=== PATIENT | male | born 1980 | race Two or more races ===

== ENCOUNTER 2018-04-29 17:13 | Emergency (ER) | payer OTHER, SELFPAY ==
[~2018-04-29] VITALS: Ht 160 cm; Wt 86.0 kg
[2018-04-29] MEDS ORDERED: FAMOTIDINE 20MG/2ML VIAL IV STA (18:28)
[2018-04-29] MEDS ORDERED: ONDANSETRON HCL 4MG/2ML INJ IV STA (18:28)
[2018-04-29] MEDS ORDERED: SODIUM CHLORIDE 0.9% 1,000 ML IV ONE (18:28)
[2018-04-29] MEDS ORDERED: MAGNESIUM/ALUMINUM HYDROXIDE/SIMETHICONE 30ML UDC PO STA (18:28)
[2018-04-29 19:06] LABS: BASOPHILS % 0.6 % (0.0-2.0); EOSINOPHILS % 2.1 % (0.0-5.0); HEMATOCRIT. 45.7 % (42.0-52.0); HEMOGLOBIN. 15.7 g/dL (14.0-18.0); LYMPHOCYTES % 44.7 % (20.0-50.0); MEAN CORPUSCULAR VOLUME 93.5 fL (80.0-94.0); NEUTROPHILS % 46.6 % (40.0-76.0); PLATELET 282 x1000/uL (130-400); RED BLOOD CELL COUNT 4.89 mill/uL (4.7-6.1); RED CELL DISTRIBUTION WIDTH 13.4 % (11.6-14.6)
[2018-04-29 19:09] LABS: CHLORIDE 107 mEq/L (98-107)
[2018-04-29 19:13] LABS: ETHANOL BLOOD 208 mg/dL
[2018-04-29 19:14] LABS: PROTHROMBIN TIME 9.9 sec (9.1-11.1)
[2018-04-29 21:05] LABS: CLARITY URINE CLEAR (CLEAR); COLOR URINE YELLOW (YELLOW); KETONES URINE NEGATIVE (NEGATIVE); LEUKOCYTE ESTERASE URINE NEGATIVE (NEGATIVE); NITRITE URINE NEGATIVE (NEGATIVE); OCCULT BLOOD URINE NEGATIVE (NEGATIVE); PROTEIN URINE NEGATIVE (NEGATIVE); SPECIFIC GRAVITY URINE 1.013 (1.005-1.030); UROBILINOGEN URINE 0.2 E.U./dL (0.2-1.0)
[2018-04-29 21:21] LABS: *AMPHETAMINES SCREEN URINE NEGATIVE (NEGATIVE); *BARBITURATES SCREEN URINE NEGATIVE (NEGATIVE); *BENZODIAZEPINES SCREEN URINE NEGATIVE (NEGATIVE); *COCAINE SCREEN URINE NEGATIVE (NEGATIVE)
[2018-04-29 21:22] LABS: CANNABINOID URINE SCREEN NEGATIVE (NEGATIVE); METHADONE URINE SCREEN NEGATIVE (NEGATIVE); OPIATES URINE SCREEN NEGATIVE (NEGATIVE); PHENCYCLIDINE URINE SCREEN NEGATIVE (NEGATIVE)
[2018-04-30 00:25] VITALS: BP 120/65
== END 2018-04-30 01:18 | disposition home or self-care (01) ==
LOC: ER 17:13
DX: K29.21 Alcoholic gastritis with bleeding (principal); F10.20 Alcohol dependence, uncomplicated; Y90.7 Blood alcohol level of 200-239 mg/100 ml
CPT/HCPCS: 36415; 74176; 80053; 80305; 81003; 83690; 84484; 85025; 85610; 96361; 96374; 96375; 99284; G0482; J2405; J3490; J7030; Z7610

== ENCOUNTER 2020-09-26 02:50 | Emergency (ER) | payer MEDICAID ==
[~2020-09-26] VITALS: Ht 162.6 cm; Wt 69.0 kg
[2020-09-26] MEDS ORDERED: BO1 TP (05:56)
[2020-09-26] MEDS ORDERED: IBUP-2029 PO (05:56)
[2020-09-26 06:08] VITALS: BP 126/48
== END 2020-09-26 06:15 | disposition home or self-care (01) ==
LOC: ER 02:50
DX: S00.03XA Contusion of scalp, initial encounter (principal); S01.511A Laceration without foreign body of lip, initial encounter; F10.129 Alcohol abuse with intoxication, unspecified; Y90.9 Presence of alcohol in blood, level not specified; Y04.0XXA Assault by unarmed brawl or fight, initial encounter; Y93.89 Activity, other specified; Y92.512 Supermarket, store or market as the place of occurrence of the external cause; Y99.8 Other external cause status
CPT/HCPCS: 99284

== ENCOUNTER 2021-12-16 22:54 | Emergency (ER) | payer SELFPAY ==
[~2021-12-16] VITALS: Ht 162.6 cm; Wt 91.0 kg
[~2021-12-16 22:54] MED LIST: BO1 TP; IBUP-2029 PO
[2021-12-16] MEDS ORDERED: TETANUS, DIPHTHERIA, PERTUSSIS VAC/PF 0.5ML (>10YR OLD) IM ONE (23:15)
[2021-12-16 23:38] LABS: CHLORIDE 108 mEq/L (98-107)
[2021-12-16 23:47] LABS: BASOPHILS % 0.7 % (0.0-2.0); EOSINOPHILS % 1.5 % (0.0-5.0); HEMATOCRIT. 41.9 % (42.0-52.0); HEMOGLOBIN. 14.8 g/dL (14.0-18.0); LYMPHOCYTES % 35.2 % (20.0-50.0); MEAN CORPUSCULAR VOLUME 93.5 fL (80.0-94.0); MEAN PLATELET VOLUME 7.5 fl (7.4-10.4); MONOCYTES % 5.3 % (2.0-8.0); NEUTROPHILS % 57.3 % (40.0-76.0); PLATELET 292 x1000/uL (130-400); RED BLOOD CELL COUNT 4.48 mill/uL (4.7-6.1); RED CELL DISTRIBUTION WIDTH 13.7 % (11.6-14.6)
[2021-12-17 00:08] LABS: ETHANOL BLOOD 336 mg/dL
[2021-12-17] MEDS ORDERED: POTASSIUM CHLORIDE 20MEQ TABLET SR PO NR (00:15)
[2021-12-17 03:11] VITALS: BP 122/72
== END 2021-12-17 04:00 | disposition home or self-care (01) ==
LOC: ER 23:12
DX: S02.31XA Fracture of orbital floor, right side, initial encounter for closed fracture (principal); W18.39XA Other fall on same level, initial encounter; Y93.89 Activity, other specified; Y92.89 Other specified places as the place of occurrence of the external cause; Y99.8 Other external cause status; F10.129 Alcohol abuse with intoxication, unspecified; Y90.8 Blood alcohol level of 240 mg/100 ml or more
CPT/HCPCS: 36415; 70486; 71045; 73090; 80053; 80320; 85025; 90471; 90715; 99285; G0480

== ENCOUNTER 2021-12-21 09:26 | Emergency (ER) | payer SELFPAY ==
[~2021-12-21] VITALS: Ht 165.1 cm; Wt 70.0 kg
[2021-12-21 10:07] VITALS: BP 123/80
[2021-12-21] MEDS ORDERED: AMOXICILLIN/POTASSIUM CLAVULANATE 875/125MG TAB PO ONE (11:45)
[2021-12-21] MEDS ORDERED: IBUPROFEN 600MG TABLET PO ONE (11:45)
[2021-12-21] MEDS ORDERED: AMOX1TAB16 MT (11:50)
[2021-12-21] MEDS ORDERED: IBUP-2029 PO (11:50)
== END 2021-12-21 12:12 | disposition home or self-care (01) ==
LOC: ER 09:26
DX: S01.511A Laceration without foreign body of lip, initial encounter (principal); V19.9XXA Pedal cyclist (driver) (passenger) injured in unspecified traffic accident, initial encounter; Y93.89 Activity, other specified; Y92.89 Other specified places as the place of occurrence of the external cause; Y99.8 Other external cause status
CPT/HCPCS: 99283